=== PATIENT | female | born 1995 | race Caucasian/White ===

== ENCOUNTER 2017-06-22 15:09 | Emergency (ER) | payer BC ==
[2017-06-22 15:41] VITALS: BP 118/61
--- NOTE | 2017-06-22 16:32 | RAD ---
Indication: Right upper arm injury. 2 views of the right humerus demonstrates no fracture. No other bone or joint abnormality is noted. IMPRESSION: No fracture of the right humerus is noted.
--- NOTE | 2017-06-22 16:55 | UC ---
Upper Extremity HPI - HPI Summary HPI Summary: YESTERDAY WAS AT [employer], HIT IN RIGHT ARM WITH BASEBALL. BRUISING TO SITE OF INJURY. RULL ROM, BUT STIFFNESS WITH ARM MOVEMENT. NO DISCOLORATION OF FINGERS OR HAND. - History of Current Complaint Chief Complaint: UCUpperExtremity Stated Complaint: ARM PAIN Time Seen by Provider: 06/22/17 15:41 Hx Obtained From: Patient Hx Last Menstrual Period: 06/19/17 Onset/Duration: Sudden Onset, Lasting Days, Still Present Severity Initially: Severe Severity Currently: Moderate Pain Intensity: 6 Pain Scale Used: 0-10 Numeric Location Of Pain: Is Discrete @ - RIGHT ARM Character: Dull Aggravating Factor(s): Movement, Flexion, Extension Alleviating Factor(s): Nothing Associated Signs And Symptoms: Positive: Swelling, Bruising Related History: Dominant Hand Right - Risk Factors DVT Risk Factors: Negative Septic Arthritis Risk Factor: Negative - Allergies/Home Medications Allergies/Adverse Reactions: Allergies Allergy/AdvReac Type Severity Reaction Status Date / Time Bee Venom Allergy Severe Difficulty Verified 03/18/17 18:28 Breathing/Wheezing Cefaclor [From Ceclor] Allergy Severe Rash Verified 03/18/17 18:28 Tomato Allergy Hives Verified 03/18/17 18:28 Home Medications: Home Medications Acetaminophen [Tylenol] 650 mg PO 06/22/17 [History] PMH/Surg Hx/FS Hx/Imm Hx Previously Healthy: Yes - Surgical History Surgical History: None Surgery Procedure, Year, and Place: WISDOM TEETH - Family History Known Family History: Positive: Cardiac Disease - positive, Hypertension - negative, Diabetes - neagtive - Social History Occupation: Employed Full-time Lives: With Family Alcohol Use: None Substance Use Type: None Smoking Status (MU): Never Smoked Tobacco - Immunization History Most Recent Tetanus Shot: 2011 Review of Systems Constitutional: Negative Skin: Bruising Eyes: Negative ENT: Negative Respiratory: Negative Cardiovascular: Negative Gastrointestinal: Negative Genitourinary: Negative Motor: Negative Neurovascular: Negative Musculoskeletal: Negative Neurological: Negative Psychological: Negative All Other Systems Reviewed And Are Negative: Yes Physical Exam Triage Information Reviewed: Yes Appearance: Well-Appearing, No Pain Distress, Well-Nourished Vital Signs: Initial Vital Signs Temp 98.4 F 06/22/17 15:36 Pulse 64 06/22/17 15:36 Resp 18 06/22/17 15:36 BP 118/61 06/22/17 15:36 Pulse Ox 100 06/22/17 15:36 Vital Signs Reviewed: Yes Eye Exam: Normal ENT Exam: Normal Dental Exam: Normal Neck exam: Normal Neck: Positive: Supple, Nontender, No Lymphadenopathy Respiratory Exam: Normal Respiratory: Positive: Chest non-tender, Lungs clear, Normal breath sounds, No respiratory distress, No accessory muscle use Cardiovascular Exam: Normal Cardiovascular: Positive: RRR, No Murmur, Pulses Normal Abdominal Exam: Normal Musculoskeletal Exam: Normal Musculoskeletal: Positive: Strength Intact, ROM Intact, No Edema Neurological Exam: Normal Psychological Exam: Normal Skin Exam: Normal Upper Extremity Course/Dx - Differential Dx/Diagnosis Differential Diagnosis/HQI/PQRI: Laceration, Strain, Sprain Provider Diagnoses: HEMATOMA/CONTUSION RIGHT ARM (ASPECT OF LATERAL HUMERUS) Discharge - Discharge Plan Condition: Stable Disposition: HOME Patient Education Materials: Contusion in Adults (ED), Hematoma (ED), Arm Pain (ED), Crush Injury (ED) Forms: *Work Release Referrals: [facility] [Outside] Marcio Medrano MD [Medical Doctor] - If Needed Bethanie Masterson MD [Primary Care Provider] -
== END 2017-06-22 16:48 | disposition home or self-care (01) ==
LOC: UCEAST 15:09
DX: S50.11XA Contusion of right forearm, initial encounter (principal); W21.03XA Struck by baseball, initial encounter; Y93.9 Activity, unspecified; Y92.9 Unspecified place or not applicable; Z88.1 Allergy status to other antibiotic agents; Z91.030 Bee allergy status
CPT/HCPCS: 99211; G0463